=== PATIENT | male | born 1985 | race Caucasian/White ===

== ENCOUNTER 2018-05-14 07:07 | Outpatient (CLI) | payer BC ==
--- NOTE | 2018-05-14 07:55 | ULT ---
ULTRASOUND GALLBLADDER RIGHT UPPER QUADRANT: Date: 05/14/18 HISTORY: Right upper quadrant pain. COMPARISON: None. FINDINGS: Real-time Son scale and color evaluation of the right upper quadrant of the abdomen was performed. T he pancreas is not well seen. Aorta and IVC are unremarkable. Portal venous vein with antegrade flow. Hepatic echotexture is normal. Gallbladder is normal. No pericholecystic fluid. Gallbladder wall thickness is normal. No cholelithia sis. Right kidney measures 10.1 x 3.8 x 5.4 cm, with a 7.0 mm intrapolar cyst. No mass or hydronephrosis. Common bile duct is normal. IMPRESSION: Normal exam. POS: HOME
== END 2018-05-14 07:08 | disposition home or self-care (01) ==
LOC: SCSULT 07:07
PROVIDERS: ATTEND Internal Medicine Gastroenterology
DX: R10.13 Epigastric pain (principal); R07.0 Pain in throat; R05 Cough
CPT/HCPCS: 76705